=== PATIENT | female | born 1965 | race Caucasian/White ===

== ENCOUNTER 2020-01-27 12:13 | Outpatient (REF) | payer OTHER, SELFPAY ==
[2020-01-27 12:35] LABS: MANUAL DIFF FLAG NO
[2020-01-27 12:45] LABS: Basophils Percent Auto 0.3 % (0-2); Eosinophils Absolute Auto 0.1 X10*3/uL (0.0-0.4); Eosinophils Percent Auto 0.9 % (0-4); Hematocrit 40.6 % (37-47); Hemoglobin 13.2 g/dl (12.0-16.0); Imm Gran Abs Auto 0.02 X10*3/uL (0.00-0.03); Imm Gran Pct Auto 0.3 % (0.0-0.4); Lymphocytes Absolute Auto 2.7 X10*3/uL (1.2-4.9); Lymphocytes Percent Auto 42.3 % (20-40); Mean Corpuscular HGB Conc 32.5 g/dl (31.0-35.0); Mean Corpuscular Hemoglobin 31.1 pg (27.0-33.0); Mean Corpuscular Volume 95.8 fL (80-98); Mean Platelet Volume 9.3 fL (9.4-12.3); Monocytes Absolute Auto 0.5 X10*3/uL (0.1-1.2); Monocytes Percent Auto 7.9 % (2-11); Neutrophils Absolute Auto 3.1 X10*3/uL (2.0-8.3); Neutrophils Percent Auto 48.3 % (45-73); Platelet Count 288 X10*3/uL (160-400); Red Blood Count 4.24 X10*6/uL (4.20-5.50); Red Cell Distribution Width 12.4 % (11.0-16.0); White Blood Count 6.5 X10*3/uL (4.8-10.8)
== END 2020-01-27 12:14 | disposition home or self-care (01) ==
LOC: HO.HVNA 12:13
PROVIDERS: Visit Provider Internal Medicine
DX: Z79.899 Other long term (current) drug therapy (principal)
CPT/HCPCS: 36415; 85025

== ENCOUNTER 2020-02-03 12:38 | Outpatient (REF) | payer OTHER, SELFPAY ==
[2020-02-03 12:46] LABS: MANUAL DIFF FLAG NO
[2020-02-03 12:53] LABS: Basophils Percent Auto 0.4 % (0-2); Eosinophils Absolute Auto 0.1 X10*3/uL (0.0-0.4); Eosinophils Percent Auto 0.7 % (0-4); Hematocrit 40.6 % (37-47); Hemoglobin 13.2 g/dl (12.0-16.0); Imm Gran Abs Auto 0.02 X10*3/uL (0.00-0.03); Imm Gran Pct Auto 0.3 % (0.0-0.4); Lymphocytes Absolute Auto 3.4 X10*3/uL (1.2-4.9); Lymphocytes Percent Auto 46.5 % (20-40); Mean Corpuscular HGB Conc 32.5 g/dl (31.0-35.0); Mean Corpuscular Hemoglobin 31.4 pg (27.0-33.0); Mean Corpuscular Volume 96.4 fL (80-98); Mean Platelet Volume 9.3 fL (9.4-12.3); Monocytes Absolute Auto 0.5 X10*3/uL (0.1-1.2); Monocytes Percent Auto 6.9 % (2-11); Neutrophils Absolute Auto 3.3 X10*3/uL (2.0-8.3); Neutrophils Percent Auto 45.2 % (45-73); Platelet Count 262 X10*3/uL (160-400); Red Blood Count 4.21 X10*6/uL (4.20-5.50); Red Cell Distribution Width 12.7 % (11.0-16.0); White Blood Count 7.2 X10*3/uL (4.8-10.8)
== END 2020-02-03 12:39 | disposition home or self-care (01) ==
LOC: HO.HVNA 12:38
PROVIDERS: Visit Provider Internal Medicine
DX: Z51.81 Encounter for therapeutic drug level monitoring (principal)
CPT/HCPCS: 36415; 85025

== ENCOUNTER 2020-02-10 11:31 | Outpatient (REF) | payer OTHER, SELFPAY ==
[2020-02-10 11:42] LABS: MANUAL DIFF FLAG NO
[2020-02-10 12:01] LABS: Basophils Percent Auto 0.5 % (0-2); Eosinophils Absolute Auto 0.1 X10*3/uL (0.0-0.4); Eosinophils Percent Auto 0.8 % (0-4); Hematocrit 40.8 % (37-47); Hemoglobin 13.1 g/dl (12.0-16.0); Imm Gran Abs Auto 0.01 X10*3/uL (0.00-0.03); Imm Gran Pct Auto 0.1 % (0.0-0.4); Lymphocytes Absolute Auto 3.7 X10*3/uL (1.2-4.9); Lymphocytes Percent Auto 47.8 % (20-40); Mean Corpuscular HGB Conc 32.1 g/dl (31.0-35.0); Mean Corpuscular Hemoglobin 30.8 pg (27.0-33.0); Mean Platelet Volume 9.3 fL (9.4-12.3); Monocytes Absolute Auto 0.5 X10*3/uL (0.1-1.2); Monocytes Percent Auto 6.7 % (2-11); Neutrophils Absolute Auto 3.4 X10*3/uL (2.0-8.3); Neutrophils Percent Auto 44.1 % (45-73); Platelet Count 296 X10*3/uL (160-400); Red Blood Count 4.25 X10*6/uL (4.20-5.50); Red Cell Distribution Width 12.4 % (11.0-16.0); White Blood Count 7.7 X10*3/uL (4.8-10.8)
== END 2020-02-10 11:32 | disposition home or self-care (01) ==
LOC: HO.LNP 11:31
PROVIDERS: Visit Provider Internal Medicine
DX: Z79.899 Other long term (current) drug therapy (principal)
CPT/HCPCS: 36415; 85025

== ENCOUNTER 2020-02-10 16:44 | Outpatient (REF) | payer OTHER, SELFPAY ==
--- NOTE | 2020-02-10 | MM_ITS ---
EXAMINATION: MM SCREENING DIGITAL BREAST TOMOSYNTHESIS, BILATERAL CLINICAL INFORMATION: Status post left lumpectomy for breast cancer/DCIS in 2013. Due for yearly exam. COMPARISON: Mammography: 04/05/2018, 03/12/2017, 02/10/2016 TECHNIQUE: Digital breast tomosynthesis is performed in both the craniocaudal and mediolateral oblique views along with computer-aided detection (CAD). Synthesized 2D images are generated from the tomosynthesis. FINDINGS: There are scattered areas of fibroglandular density (ACR BI-RADS breast composition Category b). The right breast is unremarkable. There is no developing density or interval mass or architectural abnormality. No abnormal calcifications. The skin contours are smooth. Left breast has chronic post therapy changes with mild reduced breast size and scarring with surgical clips posterior 3:00 position. There are some new subtle radiating lines at the lumpectomy site with converging surgical clips on the CC view. This may related to inhomogeneous compression. There is a benign coarse dystrophic calcification centrally in the scar. Patient will be recalled for additional imaging. The remainder of the left breast is unremarkable. MM/MM tomosynthesis screening BI IMPRESSION: 1. Left: Question of increased scarring lumpectomy site versus inhomogeneous compression. 2. Right: No mammographic evidence of malignancy. ASSESSMENT: BI-RADS 0: Incomplete - Need Additional Imaging Evaluation RECOMMENDATION: 1. Additional views of the left breast (3-D spot exaggerated CC, 3-D spot steep MLO). 2. Targeted ultrasound if warranted after review of the additional views. 3. Radiology department staff will contact the patient for additional imaging. This patient's information was entered into a reminder system with a target due date for their next mammogram.
== END 2020-02-10 16:45 | disposition home or self-care (01) ==
LOC: HO.MAMMO 16:44
PROVIDERS: Visit Provider Internal Medicine
DX: Z12.31 Encounter for screening mammogram for malignant neoplasm of breast (principal)
CPT/HCPCS: 77063; 77067

== ENCOUNTER 2020-03-05 13:22 | Outpatient (REF) | payer OTHER, SELFPAY ==
--- NOTE | 2020-03-05 13:28 | MM_ITS ---
EXAMINATION: MM DIAGNOSTIC DIGITAL BREAST TOMOSYNTHESIS, LEFT CLINICAL INFORMATION: Question new regions of distortion in lumpectomy site. COMPARISON: Mammography: February 10, 2020 and studies dating back to March 06, 2011 TECHNIQUE: Digital breast tomosynthesis is performed. 2D images are generated from the tomosynthesis. The following views are obtained: Spot compression craniocaudal, exaggerated craniocaudal, mediolateral oblique. FINDINGS: There are scattered areas of fibroglandular density (ACR BI-RADS breast composition Category b). Additional views again demonstrate postsurgical scarring with no definite new abnormal lesion or increasing mass. Results are provided to the patient at time of visit by the technologist. MM/MM tomosynthesis added views L IMPRESSION: No specific new evidence to suggest malignancy ASSESSMENT: BI-RADS 2: Benign RECOMMENDATION: Routine annual mammography screening due in 12 months. This patient's information was entered into a reminder system with a target due date for their next mammogram.
== END 2020-03-05 13:23 | disposition home or self-care (01) ==
LOC: HO.MAMMO 13:22
PROVIDERS: Visit Provider Internal Medicine
DX: L90.5 Scar conditions and fibrosis of skin (principal); Z98.890 Other specified postprocedural states
CPT/HCPCS: 77061; 77065

== ENCOUNTER 2020-03-22 19:13 | Emergency (ER) | payer OTHER, SELFPAY ==
[2020-03-22 20:41] VITALS: BP 141/75; PULSE 91; RESP 18; TEMP 36.6; O2SAT 98; BMI 30.6
[2020-03-22 21:17] LABS: MANUAL DIFF FLAG NO
[2020-03-22 21:19] LABS: Basophils Percent Auto 0.4 % (0-2); Eosinophils Percent Auto 0.4 % (0-4); Hematocrit 38.9 % (37-47); Hemoglobin 12.7 g/dl (12.0-16.0); Imm Gran Abs Auto 0.02 X10*3/uL (0.00-0.03); Imm Gran Pct Auto 0.2 % (0.0-0.4); Lymphocytes Absolute Auto 3.2 X10*3/uL (1.2-4.9); Lymphocytes Percent Auto 38.9 % (20-40); Mean Corpuscular HGB Conc 32.6 g/dl (31.0-35.0); Mean Corpuscular Hemoglobin 32.1 pg (27.0-33.0); Mean Corpuscular Volume 98.2 fL (80-98); Mean Platelet Volume 8.9 fL (9.4-12.3); Monocytes Absolute Auto 0.6 X10*3/uL (0.1-1.2); Monocytes Percent Auto 7.1 % (2-11); Neutrophils Absolute Auto 4.3 X10*3/uL (2.0-8.3); Platelet Count 273 X10*3/uL (160-400); Red Blood Count 3.96 X10*6/uL (4.20-5.50); Red Cell Distribution Width 11.9 % (11.0-16.0); White Blood Count 8.1 X10*3/uL (4.8-10.8)
[2020-03-22 21:27] LABS: Prothrombin Time 11.7 SEC (10.8-13.0)
[2020-03-22 21:30] LABS: Partial Thromboplastin Time 30.3 SEC (24.1-38.0)
[2020-03-22 21:45] LABS: Alanine Aminotransferase 15 U/L (0-31); Albumin Level 3.7 g/dL (3.5-5.0); Alkaline Phosphatase 71 U/L (39-117); Anion Gap 9 (12-20); Aspartate Amino Transferase 14 U/L (5-31); Bilirubin Total 0.2 mg/dL (0.0-1.0); Blood Urea Nitrogen 17 mg/dL (9-16); Calcium 8.2 mg/dL (8.4-10.2); Carbon Dioxide 34 mmol/L (22-29); Chloride 102 mmol/L (96-108); Creatinine Clr Calc Pharmacy 98.5; Estimated Glomerular Filt Rate > 60; Glucose Random 82 mg/dL (60-115); Potassium 4.4 mmol/l (3.3-5.1); Sodium 141 mmol/L (135-145); Total Protein 5.8 g/dL (6.5-8.0)
--- NOTE | 2020-03-22 22:02 | PC.NURSE ---
please have MD call patients daughter Arleen who is a RN at [employer] for patient history as she is unable to give appropriate history due to dementia [phone]. Arleens sister Eliza who also is a RN at [employer] will be coming to the after her shift is over at 11.
--- NOTE | 2020-03-22 22:13 | ECG_ITS ---
Test Reason : DIZZY Blood Pressure : / mmHG Vent. Rate : 066 BPM Atrial Rate : 066 BPM P-R Int : 142 ms QRS Dur : 086 ms QT Int : 430 ms P-R-T Axes : -01 -14 -10 degrees QTc Int : 450 ms Normal sinus rhythm Normal ECG When compared with ECG of 01-NOV-2017 07:45, Questionable change in QRS axis Non-specific change in ST segment in Inferior leads T wave inversion now evident in Inferior leads T wave amplitude has increased in Lateral leads Referred By: Marlin Avalos Electronically Signed By:ANTOINETTE HARTMANN
[2020-03-22 22:41] VITALS: BP 101/60; PULSE 71; RESP 20; TEMP 36.7; O2SAT 93
[2020-03-22 23:16] VITALS: BP 103/61; PULSE 63
[2020-03-22 23:18] VITALS: BP 106/60; PULSE 64
[2020-03-22 23:20] VITALS: BP 120/69; PULSE 66
[2020-03-22 23:27] LABS: Glucose Urine UA NEG (NEG); Leukocyte Esterase Urine 1+ (NEG); Nitrite Urine NEG (NEG); Specific Gravity - Urine 1.025 (1.005-1.025); Urine Blood NEG (NEG); Urine Ketones NEG (NEG); Urine Protein NEG (NEG-TRACE)
[2020-03-22 23:34] LABS: Appearance Urine HAZY; Color Urine YELLOW
[2020-03-22 23:38] LABS: Bacteria Urine 1+ /LPF; RBC Urine 0-2 /HPF (0); Squamous Epithelial Cell Urine 2+ /LPF
[2020-03-22 23:39] LABS: Mucus Urine TRACE /LPF
--- NOTE | 2020-03-22 23:41 | ED_ITS ---
HPI - Dizziness General Chief Complaint: Dizziness Stated Complaint: DIZZINESS Time Seen by Provider: 03/22/20 22:12 Source: patient Mode of arrival: ambulatory History of Present Illness HPI Narrative: This is a 54-year-old female with significant past medical history of Lewy body dementia who comes in for evaluation of dizziness which irving huerta states started after she took new medication (which as per daughter was Atarax). Patient states that she feels dizzy even while lying down but denies any fevers, chills, shortness of breath, chest pain/palpitations, GI symptoms, and denies any urinary pain/burning/frequency. Patient states that she did have some nausea today but the dizziness has been for the past 2 days. Otherwise, she denies any speech/visual changes and denies any unilateral weakness/numbness/tingling. Related Data Previous Rx's Medication Instructions Recorded cephalexin 500 mg PO Q12H 7 Days #14 cap 03/23/20 Allergies Allergy/AdvReac Type Severity Reaction Status Date / Time quetiapine [From SEROQUEL] Allergy Mild DECREASED Verified 03/22/20 20:41 BP Review of Systems Review of Systems: Pertinent positives and negatives as stated in HPI 10 point review of systems is otherwise negative. PMFSH Past Medical History Source: nursing notes reviewed Medical History Lewy body dementia Social History Social History Advance Directives: No Advance Directives Information Provided: No Physical Exam Vital Signs: Vital Signs: Last Vital Signs Temp 98.6 F 03/23/20 02:00 Pulse 63 03/23/20 02:00 Resp 18 03/23/20 02:00 BP 117/63 03/23/20 02:00 Pulse Ox 98 03/23/20 02:00 Body Mass Index 30.6 VITAL SIGNS: Reviewed. GENERAL: Well developed, well nourished, in no acute distress. HEAD: Normocephalic/atraumatic, EYES: PERRLA, EOMI intact without pain, no nystagmus/pallor/icterus noted EARS: Ext canals without abnormality, TMs non-bulging and non-erythematous NOSE: Nares patent bilateral OROPHARYNX: no oral lesions noted, posterior pharynx clear and non-erythematous without noted tonsillar enlargement/erythema/exudates NECK: Supple, no adenopathy LUNGS: Normal breath sounds. No adventitious sounds or accessory muscle use. SpO2<98> CARDIOVASCULAR: Regular rate and rhythm without noted murmurs, no JVD or lower extremity edema. ABDOMEN: Soft, non-tender, non-distended with bowel sounds. No rigidity. No guarding. No palpable masses or hernias noted MUSCULOSKELETAL: No tenderness, deformities, or effusions noted on gross inspection. EXTREMITIES: No cyanosis, clubbing or edema. SKIN: Inspection of the skin reveals no rashes, ulcerations, jaundice, pallor, or petechiae. NEUROLOGIC: Alert and oriented x 4. Strength and sensation to light touch were grossly intact x 4, pronator drift negative, cranial nerve 2-12 grossly intact, no facial asymmetry Course Course Course Narrative: This is a 54-year-old female with history and clinical presentation consistent with vertigo, but some concerned that symptoms coincide with having been provided with Atarax. Will evaluate for any evidence of infection, anemia, less likely to be neurological as there are no neurological deficits noted. On review of all investigation there is no evidence of systemic infection, anemia, electrolyte abnormalities, elevated BUN somewhat suggestive possible dehydration however orthostatics were negative. Patient received 1 L of IV fluids and urinalysis was noted to be positive for infection. Patient received initial antibiotics here in the emergency department. On re-evaluation patient states that she thinks that she is dizzy and so CT head was obtained to further evaluate which demonstrated stable appearance of a hyperdense structure in the left frontal lobe parenchyma. The recommendation is for non emergent MRI follow-up. I discussed this case with the inpatient hospitalist and recommendations are that patient should certainly follow up with outpatient MRI as well as discussing with the primary care provider decreasing the gabapentin, and stopping the Atarax. MDM - Dizziness Lab Data Result diagrams: 03/22/20 21:03/22/20 21:09 Labs: Lab Results 03/22/20 03/22/20 03/22/20 Range/Units 21:09 21:09 21:09 WBC 8.1 (4.8-10.8) X10*3/uL RBC 3.96 L (4.20-5.50) X10*6/uL Hgb 12.7 (12.0-16.0) g/dl Hct 38.9 (37-47) % MCV 98.2 H (80-98) fL MCH 32.1 (27.0-33.0) pg MCHC 32.6 (31.0-35.0) g/dl RDW 11.9 (11.0-16.0) % Plt Count 273 (160-400) X10*3/uL MPV 8.9 L (9.4-12.3) fL Immature Gran % (Auto) 0.2 (0.0-0.4) % Neut % (Auto) 53.0 (45-73) % Lymph % (Auto) 38.9 (20-40) % [place] % (Auto) 7.1 (2-11) % Eos % (Auto) 0.4 (0-4) % Baso % (Auto) 0.4 (0-2) % Lymph # (Auto) 3.2 (1.2-4.9) X10*3/uL [place] # (Auto) 0.6 (0.1-1.2) X10*3/uL Eos # (Auto) 0.0 (0.0-0.4) X10*3/uL Baso # (Auto) 0.0 (0.0-0.2) X10*3/uL Abs Immat Gran (auto) 0.02 (0.00-0.03) X10*3/uL Absolute Neuts (auto) 4.3 (2.0-8.3) X10*3/uL Absolute Nucleated RBC 0.000 (0.0-0.012) X10*3/uL Nucleated RBC % (auto) 0.0 (0.0-0.2) /100WBC PT 11.7 (10.8-13.0) SEC INR 1.0 (0.9-1.1) APTT 30.3 (24.1-38.0) SEC Sodium 141 (135-145) mmol/L Potassium 4.4 (3.3-5.1) mmol/l Chloride 102 (96-108) mmol/L Carbon Dioxide 34 H (22-29) mmol/L Anion Gap 9 L (12-20) BUN 17 H (9-16) mg/dL Creatinine 0.68 (0.5-1.4) mg/dL Estim Creat Clear Calc 98.5 Estimated GFR > 60 Random Glucose 82 (60-115) mg/dL Calcium 8.2 L (8.4-10.2) mg/dL Total Bilirubin 0.2 (0.0-1.0) mg/dL AST 14 (5-31) U/L ALT 15 (0-31) U/L Alkaline Phosphatase 71 (39-117) U/L Troponin I High Sens (<3.5-17.0) ng/L Total Protein 5.8 L (6.5-8.0) g/dL Albumin 3.7 (3.5-5.0) g/dL Urine Color Urine Appearance Urine pH (5.0-8.0) Ur Specific [place] (1.005-1.025) Urine Protein (NEG-TRACE) MG/DL Urine Glucose (UA) (NEG) MG/DL Urine Ketones (NEG) MG/DL Urine Blood (NEG) Urine Nitrite (NEG) Ur Leukocyte Esterase (NEG) Urine RBC (0) /HPF Urine WBC (0-4) /HPF Ur Squamous Epith Cells /LPF Urine Bacteria /LPF Urine Mucus /LPF 03/22/20 03/22/20 Range/Units 21:09 23:15 WBC (4.8-10.8) X10*3/uL RBC (4.20-5.50) X10*6/uL Hgb (12.0-16.0) g/dl Hct (37-47) % MCV (80-98) fL MCH (27.0-33.0) pg MCHC (31.0-35.0) g/dl RDW (11.0-16.0) % Plt Count (160-400) X10*3/uL MPV (9.4-12.3) fL Immature Gran % (Auto) (0.0-0.4) % Neut % (Auto) (45-73) % Lymph % (Auto) (20-40) % [place] % (Auto) (2-11) % Eos % (Auto) (0-4) % Baso % (Auto) (0-2) % Lymph # (Auto) (1.2-4.9) X10*3/uL [place] # (Auto) (0.1-1.2) X10*3/uL Eos # (Auto) (0.0-0.4) X10*3/uL Baso # (Auto) (0.0-0.2) X10*3/uL Abs Immat Gran (auto) (0.00-0.03) X10*3/uL Absolute Neuts (auto) (2.0-8.3) X10*3/uL Absolute Nucleated RBC (0.0-0.012) X10*3/uL Nucleated RBC % (auto) (0.0-0.2) /100WBC PT (10.8-13.0) SEC INR (0.9-1.1) APTT (24.1-38.0) SEC Sodium (135-145) mmol/L Potassium (3.3-5.1) mmol/l Chloride (96-108) mmol/L Carbon Dioxide (22-29) mmol/L Anion Gap (12-20) BUN (9-16) mg/dL Creatinine (0.5-1.4) mg/dL Estim Creat Clear Calc Estimated GFR Random Glucose (60-115) mg/dL Calcium (8.4-10.2) mg/dL Total Bilirubin (0.0-1.0) mg/dL AST (5-31) U/L ALT (0-31) U/L Alkaline Phosphatase (39-117) U/L Troponin I High Sens < 3.5 (<3.5-17.0) ng/L Total Protein (6.5-8.0) g/dL Albumin (3.5-5.0) g/dL Urine Color YELLOW Urine Appearance HAZY Urine pH 6.0 (5.0-8.0) Ur Specific [place] 1.025 (1.005-1.025) Urine Protein NEG (NEG-TRACE) MG/DL Urine Glucose (UA) NEG (NEG) MG/DL Urine Ketones NEG (NEG) MG/DL Urine Blood NEG (NEG) Urine Nitrite NEG (NEG) Ur Leukocyte Esterase 1+ H (NEG) Urine RBC 0-2 (0) /HPF Urine WBC 10-14 H (0-4) /HPF Ur Squamous Epith Cells 2+ /LPF Urine Bacteria 1+ /LPF Urine Mucus TRACE /LPF ECG Data Attestation: I personally reviewed and interpreted this ECG as follows: Prior ECG tracings: available for review Interpretation: Normal sinus rhythm, HR-66, no evidence of acute ischemia, NM/QRS/QTC are within normal limits. Discharge Plan Discharge Clinical Impression: Dizziness Medication adverse effect Qualifiers: Encounter type: initial encounter Qualified Code(s): T50.905A - Adverse effect of unspecified drugs, medicaments and biological substances, initial encounter Patient Disposition: Home, Self-Care Instructions: Dizziness (ED), Medication Safety for Older Adults (ED) Additional Instructions: 1. Radiology is recommending follow-up MRI the known lesion in the left temporal of the brain. They designate this as non emergent. 2. Atarax (hydroxyzine). 3. Patient needs to have medications reviewed and likely decrease the dose of gabapentin to assist in improved symptom control. 4. Follow-up with the primary care provider by calling the office this morning to set up an appointment at your earliest convenience. Prescriptions: New cephalexin 500 mg capsule 500 mg PO Q12H 7 Days Qty: 14 RF: 0 Referrals: Physician,Unknown [Primary Care Provider] - 2 days (Re-evaluation for dizziness suspected to be medication related as well as review of current medications to reduce dizzy like symptoms.)
[2020-03-23 00:19] LABS: Troponin-I High Sensitivity < 3.5 ng/L (<3.5-17.0)
[2020-03-23] MEDS: 0.9 % Sodium Chloride 1,000 ML 999 ML IV (00:23)
--- NOTE | 2020-03-23 00:39 | PC.NURSE ---
PATIENT GIVEN KOFFI AND ALBERTO BANKS. IVF INFUSING.
--- NOTE | 2020-03-23 00:55 | PC.NURSE ---
DAUGHTER CHARLA CALLED AND UPDATE GIVEN. PLAN; ABX FOR UTI, STOP ATARAX. GIVEN 1 LITER NS. AMBULATE. POSSIBLE HOME WITH MECLIZINE.
--- NOTE | 2020-03-23 01:07 | PC.NURSE ---
REPORT GIVEN TO JOYCELYN DUNCAN.
[2020-03-23] MEDS: cephALEXin 500 MG CAPSULE PO (01:16)
[2020-03-23 02:00] VITALS: BP 117/63; PULSE 63; RESP 18; TEMP 37; O2SAT 98
--- NOTE | 2020-03-23 02:26 | CT_ITS ---
Patient name: Dione Silva Date of : 1965 EXAMINATION: CT HEAD WITHOUT CONTRAST CLINICAL INFORMATION: Dizziness COMPARISON: 01/11/2017 TECHNIQUE: Contiguous axial imaging was performed from the skull base to vertex without intravenous contrast. This CT examination was performed using dose optimization techniques as appropriate, variously including the following: * Automated exposure control * Adjustment of mA and/or kV according to patient size (this includes techniques or standardized protocols for targeted exams where dose is matched to indication/reason for exam; i.e. extremities or head) Use of iterative reconstruction technique DLP: 1047 mGy-cm. FINDINGS: There is no evidence of acute intracranial hemorrhage or territorial infarction. No abnormal mass effect or midline shift is seen. [place] to white matter differentiation is well preserved. No extra-axial fluid collections are identified. No hydrocephalus. No significant volume loss. Absence of the septum pellucidum again noted. Redemonstration of the hyperattenuating structure within the left frontal lobe measuring 1 cm. Similar appearance to the 2017 study. The ring parenchyma is otherwise unremarkable.. The osseous structures and soft tissues are normal. The mastoid air cells and visualized portions of the paranasal sinuses are well aerated. CT/CT head/brain wo con IMPRESSION: No acute intracranial pathology. Similar appearance of the hyperdense structure in the left frontal lobe parenchyma. If not previously performed, consider nonemergent MRI follow-up.
--- NOTE | 2020-03-23 03:11 | PC.NURSE ---
PT REPORTS CONTINUED DIZZINESS. WAS ABLE TO STAND WITH STEADY GAIT, BUT DID NO AMBULATE STEADILY WITH SEBLE ARCHULETA. CT SCAN OF HEAD OBTAINED, AWAITING RESULTS. WILL CONTINUE TO MONITOR. PATIENT'S BROTHER (VARSHA) UPDATED.
== END 2020-03-23 06:30 | disposition home or self-care (01) ==
PROVIDERS: Emergency Provider Student in an Organized Health Care Education/Training Program
DX: R42 Dizziness and giddiness (principal); Z79.899 Other long term (current) drug therapy
CPT/HCPCS: 36415; 70450; 80053; 81001; 84484; 85025; 85610; 85730; 87086; 93005; 96360; 99284

== ENCOUNTER 2020-09-06 10:23 | Outpatient (REF) | payer OTHER, SELFPAY | END 2020-09-06 10:24 | disposition home or self-care (01) | LOC: HO.MAMMO 10:23 | PROVIDERS: Visit Provider Internal Medicine | DX: Z13.89 Encounter for screening for other disorder (principal) ==

== ENCOUNTER 2020-11-29 16:54 | Emergency (ER) | payer OTHER, SELFPAY | END 2020-11-29 17:05 | disposition left against medical advice (07) | PROVIDERS: Emergency Provider Emergency Medicine | DX: T15.90XA Foreign body on external eye, part unspecified, unspecified eye, initial encounter (principal); Y99.9 Unspecified external cause status ==

== ENCOUNTER 2021-02-14 09:47 | Outpatient (REF) | payer OTHER, SELFPAY ==
--- NOTE | ~2021-02-14 | MM_ITS ---
EXAMINATION: MM SCREENING DIGITAL BREAST TOMOSYNTHESIS, BILATERAL CLINICAL INFORMATION: Left lumpectomy for breast cancer/DCIS, 2013. Due for yearly. COMPARISON: Mammography: 03/05/2020, 02/10/2020, 04/05/2018, 03/12/2017 TECHNIQUE: Digital breast tomosynthesis is performed in both the craniocaudal and mediolateral oblique views along with computer-aided detection (CAD). Synthesized 2D images are generated from the tomosynthesis. FINDINGS: There are scattered areas of fibroglandular density (ACR BI-RADS breast composition Category b). There are post therapy changes on the left with reduced breast size and stable scarring posterior 3:00 position along with surgical clips. Right breast is similar to prior studies. Neither breast shows interval mass or architectural abnormality or abnormal calcifications. No significant changes. MM/MM tomosynthesis screening BI IMPRESSION: No mammographic evidence of malignancy. ASSESSMENT: BI-RADS 2: Benign RECOMMENDATION: Routine annual mammography screening. This patient's information was entered into a reminder system with a target due date for their next mammogram.
== END 2021-02-14 09:48 | disposition home or self-care (01) ==
LOC: HO.MAMMO 09:47
PROVIDERS: PCP Internal Medicine; Visit Provider Internal Medicine
DX: Z12.31 Encounter for screening mammogram for malignant neoplasm of breast (principal)
CPT/HCPCS: 77063; 77067